=== PATIENT | male | born 1945 | race Caucasian/White ===

== ENCOUNTER 2021-04-11 16:01 | Observation (INO) ==
[2021-04-11] MEDS ORDERED: Dexamethasone Sodium Phos/PF 10 MG/ML VIAL IVP ONE (16:29)
[2021-04-11 16:53] LABS: Basophils % 0.2 %; Hematocrit 39.1 % (37.5-50.1); Hemoglobin 13.1 g/dL (12.9-16.9); Immature Granulocytes % 0.3 % (0-4); Lymphocytes # 0.3 K/mcL (0.6-4.6); Lymphocytes % 2.7 %; Mean Corpuscular HGB Conc 33.5 g/dL (31.6-35.5); Mean Corpuscular Hemoglobin 28.9 pg (28.0-33.3); Mean Corpuscular Volume 86.1 fL (83.0-100.0); Mean Platelet Volume 10.7 fL (9.4-12.4); Monocytes # 0.3 K/mcL (0.0-1.3); Monocytes % 2.7 %; Neutrophils # 10.4 K/mcL (1.6-8.9); Platelet Count 223 K/mcL (140-400); Red Blood Count 4.54 M/mcL (4.19-5.50); Red Cell Distribution Width 13.3 % (11.5-14.5); Segmented Neutrophils % 94.1 %
[2021-04-11 17:09] LABS: Albumin 3.2 g/dL (3.5-5.7); Albumin/Globulin Ratio 0.9 (1.1-2.2); Bilirubin,Direct 0.2 mg/dL (0.0-0.2); Bilirubin,Indirect 0.3 mg/dL (0.0-1.0); Bilirubin,Total 0.5 mg/dL (0.3-1.0); Calcium 9.3 mg/dL (8.6-10.3); Globulin 3.5 g/dL (2.4-3.5); Potassium 5.4 mEq/L (3.5-5.1); Total Protein 6.7 g/dL (6.4-8.9)
[2021-04-11 17:14] LABS: Troponin I 0.03 ng/mL (< 0.04)
[2021-04-11] MEDS ORDERED: Acetaminophen 325 MG TABLET PO PRN (17:23)
[2021-04-11] MEDS ORDERED: Naloxone 0.4 MG/ML INJ IVP PRN (17:23)
[2021-04-11] MEDS ORDERED: Ondansetron 4 MG/2 ML VIAL IVP PRN (17:23)
[2021-04-11] MEDS: 0.9 % Sodium Chloride 1,000 ML IVC SCH (17:55)
[2021-04-11] MEDS ORDERED: Metoprolol XL (24 HR) Succ 50 MG TAB.ER.24H PO SCH (18:00)
[2021-04-11] MEDS ORDERED: Azithromycin 500 MG in 0.9 % Sodium Chloride 250 ML IVPB SCH (18:00)
[2021-04-11] MEDS ORDERED: cefTRIAXone 2,000 MG in 0.9 % Sodium Chloride Mini Bag 100 ML IVPB SCH (18:00)
[2021-04-11] MEDS ORDERED: Ipratropium/Albuterol Neb 3 ML IH ONE (19:23)
[2021-04-11] MEDS ORDERED: Budesonide/Formoterol 160/4.5 1 PUFF INH IH SCH (22:00)
[2021-04-12] MEDS: 0.9 % Sodium Chloride 1,000 ML IVC SCH
[2021-04-12 04:24] VITALS: BP 116/64; PULSE 66; RESP 16; TEMP 98.3
[2021-04-12 06:34] VITALS: O2SAT 90
[2021-04-12 07:48] LABS: Hemoglobin 11.9 g/dL (12.9-16.9); Immature Granulocytes % 0.3 % (0-4); Lymphocytes # 0.3 K/mcL (0.6-4.6); Lymphocytes % 3.6 %; Mean Corpuscular HGB Conc 32.2 g/dL (31.6-35.5); Mean Corpuscular Volume 87.1 fL (83.0-100.0); Mean Platelet Volume 11.1 fL (9.4-12.4); Monocytes # 0.1 K/mcL (0.0-1.3); Monocytes % 1.9 %; Neutrophils # 6.8 K/mcL (1.6-8.9); Platelet Count 196 K/mcL (140-400); Red Blood Count 4.25 M/mcL (4.19-5.50); Red Cell Distribution Width 13.4 % (11.5-14.5); Segmented Neutrophils % 94.2 %; White Blood Count 7.2 K/mcL (4.3-11.1)
[2021-04-12 08:40] LABS: VBG Chloride 112 mEq/L (98-107)
[2021-04-12] MEDS ORDERED: Isosorbide MONOnitrate (24 HR) 30 MG TAB.ER.24H PO SCH (09:00)
[2021-04-12] MEDS ORDERED: Fenofibrate 54 MG TABLET PO SCH (09:00)
[2021-04-12] MEDS ORDERED: NIFEdipine XL (24 HR) 30 MG TAB.ER.24 PO SCH (09:00)
[2021-04-12] MEDS ORDERED: Valsartan 160 MG TABLET PO SCH (09:00)
[2021-04-12] MEDS ORDERED: Aspirin Enteric Coated 81 MG Tablet PO SCH (09:00)
[2021-04-12] MEDS ORDERED: carvediloL 25 MG TABLET PO SCH (09:00)
[2021-04-12] MEDS ORDERED: Dexamethasone Sodium Phos/PF 10 MG/ML VIAL IVP SCH (09:00)
[2021-04-12 09:06] LABS: Alanine Aminotransferase 14 Units/L (7-52); Albumin/Globulin Ratio 0.9 (1.1-2.2); Alkaline Phosphatase 29 Units/L (34-104); Aspartate Amino Transferase 21 Units/L (13-39); BUN/Creatinine Ratio 18 (6-26); Bilirubin,Total 0.3 mg/dL (0.3-1.0); Blood Urea Nitrogen 59 mg/dL (8-23); Calcium 8.9 mg/dL (8.6-10.3); Carbon Dioxide 19 mEq/L (23-29); Chol/HDL Ratio 2.5 (0-4.9); Cholesterol 54 mg/dL (< 200); Globulin 3.4 g/dL (2.4-3.5); Glucose 326 mg/dL (70-105); HDL Cholesterol 22 mg/dL (40-59); LDL Cholesterol,Calculated 15 mg/dL (< 100); Magnesium 2.3 mg/dL (1.6-2.6); Total Protein 6.4 g/dL (6.4-8.9); Triglycerides 86 mg/dL (< 150); eGFR For African Americans 23 (> 60); eGFR For Non-African Americans 19 (> 60)
[2021-04-12 12:49] LABS: C-Reactive Protein 221 mg/L (Less than 10)
[2021-04-12 13:07] LABS: Ferritin 493 ng/mL (20-250)
[2021-04-12] MEDS ORDERED: *HR* Rivaroxaban 15 MG TABLET PO SCH (17:00)
== END 2021-04-12 08:32 | disposition short-term general hospital (02) ==
LOC: EMEROOPIK 16:01 → INPPIK 16:01
PROVIDERS: ADMIT Family Medicine; ATTEND Family Medicine